=== PATIENT | female | born 1970 ===

== ENCOUNTER 2019-02-22 12:20 | Emergency (ER) | payer OTHER ==
[2019-02-22 12:32] VITALS: BP 114/67
[2019-02-22] MEDS ORDERED: Hydrocortisone 1% CREAM* 30 GM TUBE TOPICAL SCH ×2 (12:58→14:00)
[2019-02-22] MEDS ORDERED: Hydrocortisone 1% CREAM* 30 GM TUBE TOPICAL ONE (13:03)
--- NOTE | 2019-02-22 13:03 | UC ---
Skin Complaint HPI - HPI Summary HPI Summary: 48 year old female currently at [facility] for addiction, PMH + for psorasis dx'd 8 years ago when patient had flare similiar to the one she is having now, treated with an ointment without any recurrence presents with small blistering on b/l hands, between fingers, antecub b/l and heels b/l. + painful, + itch. some drianage from blisters breaking, clear. No other symptoms, no throat pain, SOB , no other lesions/ locations. was on bactrim recently, no other medication changes. Tried hydrocortisone cream without improvement. was seen by [employer] Marion Wade, was told medication was called in but pharmacy does not have naything for patient. - History of Current Complaint Chief Complaint: UCRash Time Seen by Provider: 02/22/19 12:29 Stated Complaint: RASH Hx Obtained From: Patient ?: No Onset/Duration: Sudden Onset, Lasting Days Skin Exposure Onset/Duration: Days Ago Onset Severity: Moderate Current Severity: Moderate Pain Intensity: 8 Pain Scale Used: 0-10 Numeric Location: Hand (Right), Hand (Left), Foot (Right), Foot (Left) Character: Pruritus, Pain, Redness, Raised, Painful Aggravating Factor(s): Wet Conditions, Showering, Touch Associated Signs & Symptoms: Positive: Drainage, Tenderness. Negative: Nausea, Vomiting, Numbness, Diaphoresis, Weakness, Shivering, Fever, Cough, Wheezing, Chest Pain, Hoarseness, Bruising, Joint Swelling - Allergy/Home Medications Allergies/Adverse Reactions: Allergies Allergy/AdvReac Type Severity Reaction Status Date / Time ketorolac [From Toradol] Allergy Rash Verified 02/22/19 12:32 sertraline [From Zoloft] Allergy Rash Verified 02/22/19 12:32 Home Medications: Home Medications Buprenorp/Nalox 8-2 MG FILM [Suboxone] 0.5 mis SL DAILY 02/22/19 [History Confirmed 02/22/19] Buprenorp/Nalox 8-2 MG FILM [Suboxone] 2 mis SL 02/22/19 [History] clonazePAM [Klonopin] 2 mg PO DAILY 02/22/19 [History Confirmed 02/22/19] PMH/Surg Hx/FS Hx/Imm Hx Previously Healthy: Yes - h/o psoriasis - Surgical History Surgical History: Yes Surgery Procedure, Year, and Place: tubal ligation - Family History Known Family History: Positive: Non-Contributory - Social History Alcohol Use: None Substance Use Type: None 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 Negative: Fever, Chills, Fatigue Skin: Positive: Rash Musculoskeletal: Negative: Arthralgia, Decreased ROM, Edema, Myalgia Is Patient Immunocompromised?: No Physical Exam - Summary Physical Exam Summary: small ~ 1mm blistering seen in cluster formation over wrist creases, antecub, inbetween fingers consistent with dyshydrotic ezcema b/l UE and b/l heels. Coalescing of blisters over creases. full ROM all fingers, wrists without difficulty, strenght intact, SITLT. Triage Information Reviewed: Yes Appearance: Well-Appearing, No Pain Distress, Well-Nourished Vital Signs: Initial Vital Signs Temp 97.2 F 02/22/19 12:27 Pulse 77 02/22/19 12:27 Resp 18 02/22/19 12:27 BP 114/67 02/22/19 12:27 Pulse Ox 96 02/22/19 12:27 Vital Signs Reviewed: Yes Eyes: Positive: Conjunctiva Clear Respiratory: Positive: Chest non-tender, Lungs clear, Normal breath sounds, No respiratory distress, No accessory muscle use Cardiovascular: Positive: RRR, No Murmur Musculoskeletal: Positive: Strength Intact, ROM Intact, No Edema Neurological: Positive: Alert, Other: - SITLT b/l UE distal to shoulder Rad/ ulnar pulses 2+ Psychological Exam: Normal Skin: Positive: Other - small ~ 1mm blistering seen in cluster formation over wrist creases, antecub, inbetween fingers consistent with dyshydrotic ezcema b/ l UE and b/l heels. Coalescing of blisters over creases. full ROM all fingers, wrists without difficulty, strenght intact, SITLT. Course/Dx - Course Course Of Treatment: Exam consistent with dyshidrotic Eczema: - Apply hydrocortisone cream given at urgent care until able to get prescription filled, than Do not use - Triamcinolone ointment twice daily over areas - Follow up with dermatology for further treatment - Motrin/ Tylenol as needed for pain - GO to ER with fever, chills, joint pains, increasing rash - Differential Diagnoses - Skin Complaint Differential Diagnoses: Drug Rash, Urticaria, Viral Exanthem - Diagnoses Provider Diagnosis: Eczema Discharge ED - Sign-Out/Discharge Documenting (check all that apply): Patient Departure All imaging exams completed and their final reports reviewed: No Studies - Discharge Plan Condition: Good Disposition: HOME Prescriptions: Triamcinolone 0.1% Oint (NF) [Triamcinolone Acetonide] 3 gm TOPICAL BID #1 tube Patient Education Materials: Dyshidrotic Eczema (ED) Referrals: Alisha Wade NP [Primary Care Provider] - Walker Bae MD [Medical Doctor] - (Follow up within 1 week ) Additional Instructions: Eczema: - Apply hydrocortisone cream given at urgent care until able to get prescription filled, than Do not use - Triamcinolone ointment twice daily over areas - Follow up with dermatology for further treatment - Motrin/ Tylenol as needed for pain - GO to ER with fever, chills, joint pains, increasing rash - Billing Disposition and Condition Condition: GOOD Disposition: Home - Attestation Statements Provider Attestation: Per institutional requirements, I have reviewed the chart, however, I was not consulted specifically or made aware of this patient by the midlevel provider. I did not personally evaluate, interact with , or disposition this patient.
== END 2019-02-22 13:00 | disposition home or self-care (01) ==
LOC: UCEAST 12:20
DX: L30.9 Dermatitis, unspecified (principal)
CPT/HCPCS: 99212; A9270-GY; G0463